=== PATIENT | female | born 1960 | race Caucasian/White ===

== ENCOUNTER 2018-10-03 11:28 | Outpatient (CLI) | payer OTHER | END 2018-10-03 11:29 | disposition home or self-care (01) | LOC: BICMAMMO 11:28 | PROVIDERS: ATTEND Internal Medicine | DX: Z12.31 Encounter for screening mammogram for malignant neoplasm of breast (principal); R92.1 Mammographic calcification found on diagnostic imaging of breast | CPT/HCPCS: 77063; 77067 ==

== ENCOUNTER 2019-10-06 10:26 | Outpatient (CLI) | payer OTHER ==
--- NOTE | 2019-10-07 10:13 | MMO ---
Bilateral MAMMO Bilat Screen [facility]. CLINICAL HISTORY: Patient is 58 years old and is seen for screening. The patient has no family history of breast cancer. The patient has no personal history of cancer. The patient has a history of right Ultrasound Guided Core Biopsy in 2004. VIEWS: The views performed were: bilateral craniocaudal and bilateral mediolateral oblique. FILMS COMPARED: The present examination has been compared to prior imaging studies performed at [facility] on 11/01/2015, 11/06/2016 and 10/03/2018, and at [facility] on 11/24/2013. This study has been interpreted with the assistance of computer-aided detection. MAMMOGRAM FINDINGS: There are scattered fibroglandular densities. Finding 1: There are stable benign appearing calcifications seen in both breasts. Finding 2: There is a stable biopsy clip seen in the right breast. Finding 3: There are multiple stable nodules of varying size with circumscribed margins seen in both breasts. There are no suspicious masses, suspicious calcifications, or new areas of architectural distortion. IMPRESSION: THERE IS NO MAMMOGRAPHIC EVIDENCE OF MALIGNANCY. A ROUTINE FOLLOW-UP MAMMOGRAM IN 1 YEAR IS RECOMMENDED. ACR BI-RADS Category 2 - Benign finding MAMMOGRAPHY NOTE: 1. A negative mammogram report should not delay a biopsy if a dominant of clinically suspicious mass is present. 2. Approximately 10% to 15% of breast cancers are not detected by mammography. 3. Adenosis and dense breasts may obscure an underlying neoplasm. Reported by: DEEJAY MAIER MD Electonically Signed: [id number]
== END 2019-10-06 10:27 | disposition home or self-care (01) ==
LOC: BICMAMMO 10:26
PROVIDERS: ATTEND Student in an Organized Health Care Education/Training Program
DX: Z12.31 Encounter for screening mammogram for malignant neoplasm of breast (principal); Z91.89 Other specified personal risk factors, not elsewhere classified
CPT/HCPCS: 77067

== ENCOUNTER 2020-10-12 07:57 | Outpatient (CLI) | payer OTHER ==
--- NOTE | 2020-10-12 08:46 | MMO ---
Bilateral MAMMO Bilat Screen [facility]. CLINICAL HISTORY: Patient is 59 years old and is seen for screening. The patient has no family history of breast cancer. The patient has no personal history of cancer. The patient has a history of right Ultrasound Guided Core Biopsy in 2004. VIEWS: The views performed were: bilateral craniocaudal with tomosynthesis and bilateral mediolateral oblique with tomosynthesis. FILMS COMPARED: The present examination has been compared to prior imaging studies performed at [facility] on 11/01/2015, 11/06/2016, 10/03/2018 and 10/06/2019. This study has been interpreted with the assistance of computer-aided detection. MAMMOGRAM FINDINGS: There are scattered fibroglandular densities. There are benign appearing calcifications seen in both breasts. Scattered benign densities. There are no suspicious masses, suspicious calcifications, or new areas of architectural distortion. IMPRESSION: THERE IS NO MAMMOGRAPHIC EVIDENCE OF MALIGNANCY. A ROUTINE FOLLOW-UP MAMMOGRAM IN 1 YEAR IS RECOMMENDED. THE RESULTS OF THIS EXAM WERE SENT TO THE PATIENT. ACR BI-RADS Category 2 - Benign finding MAMMOGRAPHY NOTE: 1. A negative mammogram report should not delay a biopsy if a dominant of clinically suspicious mass is present. 2. Approximately 10% to 15% of breast cancers are not detected by mammography. 3. Adenosis and dense breasts may obscure an underlying neoplasm. Reported by: DOMINIQUE CHILDS MD Electonically Signed: [id number]
== END 2020-10-12 07:58 | disposition home or self-care (01) ==
LOC: BICMAMMO 07:57
PROVIDERS: ATTEND Student in an Organized Health Care Education/Training Program
DX: Z12.31 Encounter for screening mammogram for malignant neoplasm of breast (principal)
CPT/HCPCS: 77063; 77067

== ENCOUNTER 2021-09-19 09:27 | Outpatient (CLI) | payer OTHER | END 2021-09-19 09:28 | disposition home or self-care (01) | LOC: BICULT 09:27 | PROVIDERS: ATTEND Family Medicine | DX: M79.662 Pain in left lower leg (principal) | CPT/HCPCS: 76999 ==

== ENCOUNTER 2021-10-13 08:55 | Outpatient (CLI) | payer OTHER | END 2021-10-13 08:56 | disposition home or self-care (01) | LOC: BICMAMMO 08:55 | PROVIDERS: ATTEND Family Medicine | DX: Z12.31 Encounter for screening mammogram for malignant neoplasm of breast (principal); Z80.3 Family history of malignant neoplasm of breast | CPT/HCPCS: 77067 ==

== ENCOUNTER 2022-10-24 10:55 | Outpatient (CLI) | payer OTHER | END 2022-10-24 10:56 | disposition home or self-care (01) | LOC: BICMAMMO 10:55 | PROVIDERS: ATTEND Family Medicine | DX: Z12.31 Encounter for screening mammogram for malignant neoplasm of breast (principal); N63.21 Unspecified lump in the left breast, upper outer quadrant | CPT/HCPCS: 77067 ==

== ENCOUNTER 2023-10-25 08:19 | Outpatient (CLI) | payer OTHER | END 2023-10-25 08:20 | disposition home or self-care (01) | LOC: BICMAMMO 08:19 | PROVIDERS: ATTEND Student in an Organized Health Care Education/Training Program | DX: Z12.31 Encounter for screening mammogram for malignant neoplasm of breast (principal) | CPT/HCPCS: 77067 ==

== ENCOUNTER 2025-03-02 15:12 | Outpatient (CLI) | payer MEDICARE, OTHER | END 2025-03-02 15:13 | disposition home or self-care (01) | LOC: ULT 15:12 | PROVIDERS: ATTEND Family Medicine | DX: R59.0 Localized enlarged lymph nodes (principal) | CPT/HCPCS: 76536 ==